=== PATIENT | female | born 1990 | race Caucasian/White ===

== ENCOUNTER 2017-07-29 03:22 | Emergency (ER) | payer OTHER ==
[~2017-07-29] VITALS: Ht 167.6 cm; Wt 68.1 kg
[~2017-07-29 03:22] MED LIST: MICONAZOLE NITR30 GM TP; MIRENA52 MG IY; Motrin PO; PRENATAL1 EACH PO; Percocet 5/325,Endoc PO
[2017-07-29 06:00] VITALS: BP 132/88
== END 2017-07-29 06:01 | disposition home or self-care (01) ==
LOC: EME 03:22
PROC: 0HQ1XZZ Repair Face Skin, External Approach (ICD-10-PCS; principal; 2017-07-29)
DX: S01.112A Laceration without foreign body of left eyelid and periocular area, initial encounter (principal); S00.81XA Abrasion of other part of head, initial encounter; S00.83XA Contusion of other part of head, initial encounter; F10.129 Alcohol abuse with intoxication, unspecified; W01.0XXA Fall on same level from slipping, tripping and stumbling without subsequent striking against object, initial encounter; F17.200 Nicotine dependence, unspecified, uncomplicated
CPT/HCPCS: 70450; 70486; 72125; 99281; 99284

== ENCOUNTER 2017-11-08 00:18 | Emergency (ER) | payer OTHER ==
[~2017-11-08] VITALS: Ht 165.1 cm; Wt 75.7 kg
[2017-11-08 00:58] LABS: HEMATOCRIT 40.7 % (36.0-46.0); HEMOGLOBIN 13.9 G/DL (11.9-15.5); MCH 30.2 PG (29.0-34.0); MCHC 34.2 G/DL (30.0-36.0); MCV 88.5 FL (83-99); PLATELET COUNT 258 K/uL (156-360); RBC DIS.WIDTH-CV 12.7 % (11.8-14.6); RBC DIS.WIDTH-SD 41.2 % (39-53); WHITE BLOOD COUNT 13.2 K/uL (4.1-10.2)
[2017-11-08 01:02] LABS: APPEARANCE CLEAR ((CLEAR)); BILIRUBIN NEGATIVE; BLOOD NEGATIVE; COLOR STRAW ((YELLOW)); GLUCOSE (STRIP) NEGATIVE; KETONES NEGATIVE; LEUKOCYTES TRACE; NITRITE NEGATIVE; PROTEIN (STRIP) NEGATIVE; SPECIFIC GRAVITY 1.009 (1.000-1.030); UROBILINOGEN 0.2 MG/DL (0.2-1.0)
[2017-11-08 01:08] LABS: ALBUMIN 4.5 g/dL (3.2-4.8); CHLORIDE 108 mEq/L (99-109); POTASSIUM 4.1 mEq/L (3.7-5.4); SODIUM 141 mEq/L (136-147)
[2017-11-08 01:11] LABS: GLUCOSE 92 mg/dL (70-99); TOTAL PROTEIN 7.2 g/dL (6.4-8.3)
[2017-11-08 01:12] LABS: TOTAL BILIRUBIN 0.4 mg/dL (0.0-1.0)
[2017-11-08 01:14] LABS: ALKALINE PHOSPHATASE 85 IU/L (3-129); CREATININE 0.8 mg/dL (0.6-1.3); GFR ESTIMATE (CALCULATED) > 59 mL/min/
[2017-11-08 01:15] LABS: UREA NITROGEN (BUN) 9 mg/dL (9-23)
[2017-11-08 01:16] LABS: AST (GOT) 13 IU/L (2-34)
[2017-11-08 01:17] LABS: ALT (GPT) 10 IU/L (3-49)
[2017-11-08 01:21] LABS: BACTERIA RARE /HPF; EPITHELIAL CELLS RARE /HPF; MUCUS TRACE /LPF; RED BLOOD CELLS 0-5 /HPF (0-5); UCUL ADDED? YES
[2017-11-08 01:26] LABS: QUANTITATIVE HCG < 4.0 MIU/ML
[2017-11-08] MEDS ORDERED: TRIAMCINOLONE A15 GM TP (03:37)
[2017-11-08] MEDS ORDERED: PYRIDIUM200 MG PO (03:38)
[2017-11-08] MEDS ORDERED: CIPRO250 MG PO (03:38)
[2017-11-08 03:55] VITALS: BP 112/64
== END 2017-11-08 03:57 | disposition home or self-care (01) ==
LOC: EME 00:18
DX: N39.0 Urinary tract infection, site not specified (principal); L30.9 Dermatitis, unspecified; F17.200 Nicotine dependence, unspecified, uncomplicated
CPT/HCPCS: 80053; 81003; 84702; 85027; 87086; 99281; 99284